=== PATIENT | male | born 2000 | race African-American/Black ===

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

== ENCOUNTER 2019-06-06 17:37 | Emergency (ER) | payer SELFPAY ==
[2019-06-06 17:43] VITALS: BP 150/70
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
== END 2019-06-06 18:36 | disposition home or self-care (01) ==
LOC: ER 17:37
DX: J02.9 Acute pharyngitis, unspecified (principal)
CPT/HCPCS: 87070; 87077; 87880; 99283